=== PATIENT | female | born 1940 | race Caucasian/White ===

== ENCOUNTER 2016-09-27 21:29 | Emergency (ER) | payer MEDICARE, BC ==
[~2016-09-27] VITALS: Ht 162.6 cm; Wt 55.0 kg
[~2016-09-27 21:29] MED LIST: LEVO.075 PO; LOSA25TA31 PO
[2016-09-27 21:30] VITALS: BP 209/84; PULSE 74; RESP 18; TEMP 97.7; O2SAT 100
[2016-09-27 22:14] VITALS: BP 199/77; PULSE 77; RESP 18; O2SAT 99
[2016-09-27] MEDS ORDERED: SODIUM CHLORIDE 0.9% FLUSH 10 ML FLUSH IVF PRN (22:30)
[2016-09-27] MEDS ORDERED: ALUMINUM/MAGNESIUM/SIMETH 30 ML CUP PO ONE (22:30)
[2016-09-27] MEDS ORDERED: LIDOCAINE VISCOUS 2% SOLN 15 ML UDC PO ONE (22:30)
[2016-09-27] MEDS ORDERED: ASPIRIN 81 MG CHEW TAB PO ONE (22:30)
[2016-09-27 22:40] VITALS: BP 165/78; PULSE 64; RESP 16; O2SAT 100
--- NOTE | 2016-09-27 22:48 | RADRPT ---
EXAM DATE/TIME: 09/27/2016 22:24 [facility] COMPARISON: No previous studies available for comparison. INDICATIONS : Chest pain that started today. MEDICAL HISTORY : None. SURGICAL HISTORY : None. ENCOUNTER: Initial ACUITY: 1 day PAIN SCORE: 5/10 LOCATION: Bilateral chest FINDINGS: A single view of the chest demonstrates the lungs to be symmetrically aerated without evidence of mas s, infiltrate or effusion. There is hyperaeration of the lung bauman. The cardiomediastinal contours are unremarkable. Osseous structures are intact. CONCLUSION: No acute disease. Harinder Valentino MD on September 27, 2016 at 22:46 Board Certified Radiologist. This report was verified electronically.
[2016-09-27 23:15] LABS: ANION GAP 8 MEQ/L (5-15); AST (GOT) 20 U/L (15-37); BICARBONATE 27.5 MEQ/L (21.0-32.0); BLOOD UREA NITROGEN 14 MG/DL (7-18); CHLORIDE 98 MEQ/L (98-107); GLOMERULAR FILTRATION RATE 79 ML/MIN (>89); POTASSIUM 3.8 MEQ/L (3.5-5.1); SODIUM (NA) 133 MEQ/L (136-145)
[2016-09-27 23:23] LABS: ALKALINE PHOSPHATASE 96 U/L (45-117); ALT (GPT) 19 U/L (10-53); TOTAL BILIRUBIN ADULT 0.3 MG/DL (0.2-1.0)
[2016-09-27 23:27] LABS: AUTOMATED NEUTROPHIL # 3.8 TH/MM3 (1.8-7.7); BASOPHIL # 0.1 TH/MM3 (0-0.2); BASOPHIL % 1.2 % (0.0-2.0); EOSINOPHIL # 0.1 TH/MM3 (0-0.4); EOSINOPHIL % 1.7 % (0.0-4.0); HEMO FLAGS DIFF FINAL; LYMPH % 30.6 % (9.0-44.0); MEAN CELL VOLUME 88.6 FL (80.0-100.0); MEAN CORPUSCULAR HEMOGLOBIN 29.6 PG (27.0-34.0); MEAN CORPUSCULAR HGB CONC 33.4 % (32.0-36.0); MONO % 8.8 % (0.0-8.0); NEUT % 57.7 % (16.0-70.0); PLATELET COUNT 214 TH/MM3 (150-450); RED BLOOD COUNT 3.95 MIL/MM3 (4.00-5.30); RED CELL DISTRIBUTION WIDTH 13.1 % (11.6-17.2); WHITE BLOOD COUNT 6.6 TH/MM3 (4.0-11.0)
[2016-09-27 23:38] LABS: APTT (PATIENT) 27.7 SEC (24.3-30.1); PROTHROMBIN TIME - PATIENT 11.4 SEC (9.8-11.6)
--- NOTE | 2016-09-28 00:37 | RADRPT ---
EXAM DATE/TIME: 09/27/2016 23:40 [facility] COMPARISON: No previous studies available for comparison. INDICATIONS : Right upper quadrant pain. MEDICAL HISTORY : Hypercholesterolemia. Hypertension. Thyroid disease. Ovarian cysts. Bladder cancer. Heart murmur. R hematic fever. SURGICAL HISTORY : Tonsillectomy. Appendectomy. Left ovarian cyst removal. Left oophorectomy. ENCOUNTER: Initial ACUITY: 1 day PAIN SCORE: 3/10 LOCATION: Right upper quadrant MEASUREMENTS: LIVER: 14.4 cm length COMMON DUCT: 4 mm RIGHT KIDNEY: 9.6 x 4.4 x 3.7 cm FINDINGS: LIVER: Normal echotexture without focal lesion or ductal dilatation. COMMON DUCT: No intraluminal mass or stone visualized. GALLBLADDER: Contains no stones, demonstrates no wall thickening or pericholecystic fluid. The gallbladder is cont racted. PANCREAS: The visualized portions are within normal limits. RIGHT KIDNEY: No evidence of stone, or mass. There is minimal dilatation of the right renal pelvis. CONCLUSION: 1. Contracted gallbladder without stones. 2. Minimal dilatation the right renal pelvis. Wei Duron MD on September 28, 2016 at 0:33 Board Certified Radiologist. This report was verified electronically.
--- NOTE | 2016-09-28 00:53 | PD ---
HPI Chief Complaint: Chest Pain Time Seen by Provider: 22:02 Travel History International Travel<30 days: No Contact w/Intl Traveler<30days: No Traveled to known affect area: No History of Present Illness HPI This 76-year-old woman presents to the emergency department complaining of chest pain. She started developing retrosternal chest pain tonight after dinner. She had a spaghetti for dinner. She's had trouble with indigestion or reflux in the past. She's had chest pain in the past several times but is never been diagnosed of CAD or ACS. She doesn't anxiety. She denies any shortness of breath. Is not having any pain now. Only other symptom that she' s had some increased belching. History Past Medical History Narrative Medical Rheumatic fever as a child Hypothyroidism Possible hypertension in the past, not treated now Anxiety GERD PNEUMOCCOCAL Vaccine (Year): 2 Menopausal: Yes Social History Alcohol Use: Yes (OCC) Tobacco Use: No Allergies-Medications (Allergen,Severity, Reaction): Coded Allergies: Penicillin (Verified Allergy, Severe, Rash, 09/27/16) Sulfa (Verified Allergy, Severe, Hives, 09/27/16) Reported Meds & Prescriptions Reported Meds & Active Scripts Active Reported Cozaar (Losartan Potassium) 25 Mg Tab 25 Mg PO DAILY Synthroid (Levothyroxine Sodium) 75 Mcg Tab 50 Mcg PO DAILY Review of Systems Except as stated in HPI: all other systems reviewed are Neg Physical Exam Narrative GENERAL: Well-appearing 76-year-old woman, no acute distress. SKIN: Focused skin assessment warm/dry. HEAD: Atraumatic. Normocephalic. EYES: Pupils equal and round. No scleral icterus. No injection or drainage. ENT: No nasal bleeding or discharge. Mucous membranes pink and moist. NECK: Trachea midline. No JVD. CARDIOVASCULAR: Regular rate and rhythm. No murmur appreciated. RESPIRATORY: No accessory muscle use. Clear to auscultation. Breath sounds equal bilaterally. GASTROINTESTINAL: Abdomen is flat and soft. She's had some epigastric and right upper quadrant tenderness to palpation. Negative Zuñiga's. MUSCULOSKELETAL: No obvious deformities. No clubbing. No cyanosis. No edema. NEUROLOGICAL: Awake and alert. No obvious cranial nerve deficits. Motor grossly within normal limits. Normal speech. PSYCHIATRIC: Appropriate mood and affect; insight and judgment normal. Data Data Last Documented VS Vital Signs Date Time Temp Pulse Resp B/P Pulse Ox O2 Delivery O2 Flow Rate FiO2 09/27/16 22:40 64 16 165/78 100 Room Air 09/27/16 21:30 97.7 Orders Electrocardiogram (09/27/16 22:23) Complete Blood Count With Diff (09/27/16 22:23) Comprehensive Metabolic Panel (09/27/16 22:23) Magnesium (Mg) (09/27/16 22:23) Prothrombin Time / Inr (Pt) (09/27/16 22:23) Act Partial Throm Time (Ptt) (09/27/16 22:23) Troponin I (09/27/16 22:23) Chest, Single Ap (09/27/16 22:23) Ecg Monitoring (09/27/16 22:23) Bilateral Bp Monitoring (09/27/16 22:23) Iv Access Insert/Monitor (09/27/16 22:23) Oximetry (09/27/16 22:23) Oxygen Administration (09/27/16 22:23) Aspirin Chew (Aspirin Chew) (09/27/16 22:30) Sodium Chloride 0.9% Flush (Ns Flush) (09/27/16 22:30) Us Abdomen Gallbladder (09/27/16 ) Al-Mag Hy-Si 40-40-4 Mg/Ml Liq (Mag-Al P (09/27/16 22:30) Lidocaine 2% Viscous (Xylocaine 2% Visco (09/27/16 22:30) Labs Laboratory Tests Test 09/27/16 22:35 White Blood Count 6.6 TH/MM3 Red Blood Count 3.95 MIL/MM3 Hemoglobin 11.7 GM/DL Hematocrit 35.0 % Mean Corpuscular Volume 88.6 FL Mean Corpuscular Hemoglobin 29.6 PG Mean Corpuscular Hemoglobin 33.4 % Concent Red Cell Distribution Width 13.1 % Platelet Count 214 TH/MM3 Mean Platelet Volume 9.1 FL Neutrophils (%) (Auto) 57.7 % Lymphocytes (%) (Auto) 30.6 % Monocytes (%) (Auto) 8.8 % Eosinophils (%) (Auto) 1.7 % Basophils (%) (Auto) 1.2 % Neutrophils # (Auto) 3.8 TH/MM3 Lymphocytes # (Auto) 2.0 TH/MM3 Monocytes # (Auto) 0.6 TH/MM3 Eosinophils # (Auto) 0.1 TH/MM3 Basophils # (Auto) 0.1 TH/MM3 CBC Comment DIFF FINAL Differential Comment Prothrombin Time 11.4 SEC Prothromb Time International 1.0 RATIO Ratio Activated Partial 27.7 SEC Thromboplast Time Sodium Level 133 MEQ/L Potassium Level 3.8 MEQ/L Chloride Level 98 MEQ/L Carbon Dioxide Level 27.5 MEQ/L Anion Gap 8 MEQ/L Blood Urea Nitrogen 14 MG/DL Creatinine 0.72 MG/DL Estimat Glomerular Filtration 79 ML/MIN Rate Random Glucose 102 MG/DL Calcium Level 8.3 MG/DL Magnesium Level 2.0 MG/DL Total Bilirubin 0.3 MG/DL Aspartate Amino Transf 20 U/L (AST/SGOT) Alanine Aminotransferase 19 U/L (ALT/SGPT) Alkaline Phosphatase 96 U/L Troponin I LESS THAN 0.02 NG/ML Total Protein 6.7 GM/DL Albumin 3.5 GM/DL [facility] Medical Decision Making Medical Screen Exam Complete: Yes Emergency Medical Condition: Yes Interpretation(s) My review of EKG: Normal sinus rhythm at a rate of 62, normal axis, normal intervals, no acute ischemia. LABS: CBC is unremarkable CMP is unremarkable Troponins negative Coags are unremarkable Chest x-ray negative Right upper quadrant ultrasound: Contracted gallbladder without stones. Minimal dilatation of the right renal pelvis. Differential Diagnosis ACS, gastritis, hepatobiliary disease, other Narrative Course Medical decision-making 76 year-old woman presents to the emergency department with chest pain. Sounds like indigestion. She also has anxiety. Initial workups unremarkable. She had some right upper quadrant tenderness. Right upper quadrant ultrasounds negative. Recommend outpatient follow-up. Diagnosis Primary Impression: Indigestion Additional Instructions: Follow-up with your primary doctor in the next 2-4 days. Return to the emergency department for any new or worsening symptoms. Med/Other Pt SpecificInfo: No Change to Meds Disposition: 01 DISCHARGE HOME Condition: Stable Yaw Jacobo MD Sep 28, 2016 00:53
--- NOTE | 2016-09-28 10:28 | EKG ---
Date Performed: 09/27/2016 Time Performed: 22:11:09 PTAGE: 76 years EKG: Sinus rhythm POSSIBLE RIGHT VENTRICULAR CONDUCTION DELAY BORDERLINE ECG Compared to prior tracing no significant change PREVIOUS TRACING : 04/23/2013 18.11 DOCTOR: Maricel Dan Interpretating Date/Time 09/28/2016 10:25:21
== END 2016-09-28 01:13 | disposition home or self-care (01) ==
LOC: NEPC 21:29
DX: K30 Functional dyspepsia (principal); E03.9 Hypothyroidism, unspecified; F41.9 Anxiety disorder, unspecified
CPT/HCPCS: 71010; 76705; 80053; 83735; 84484; 85025; 85610; 85730; 93005

== ENCOUNTER → 2017-06-03 | Outpatient (CLI) | payer MEDICARE, BC ==
[2017-06-03 08:41] LABS: AUTOMATED NEUTROPHIL # 3.4 TH/MM3 (1.8-7.7); BASOPHIL # 0.1 TH/MM3 (0-0.2); BASOPHIL % 1.3 % (0.0-2.0); EOSINOPHIL # 0.1 TH/MM3 (0-0.4); EOSINOPHIL % 1.4 % (0.0-4.0); HEMATOCRIT 38.3 % (35.0-46.0); HEMO FLAGS DIFF FINAL; LYMPH % 29.3 % (9.0-44.0); LYMPHOCYTE # 1.6 TH/MM3 (1.0-4.8); MEAN CELL VOLUME 90.6 FL (80.0-100.0); MEAN CORPUSCULAR HGB CONC 33.2 % (32.0-36.0); MONO % 7.4 % (0.0-8.0); NEUT % 60.6 % (16.0-70.0); PLATELET COUNT 238 TH/MM3 (150-450); RED BLOOD COUNT 4.22 MIL/MM3 (4.00-5.30); RED CELL DISTRIBUTION WIDTH 13.2 % (11.6-17.2); WHITE BLOOD COUNT 5.5 TH/MM3 (4.0-11.0)
[2017-06-03 09:00] LABS: ALT (GPT) 18 U/L (10-53)
[2017-06-03 09:09] LABS: ALKALINE PHOSPHATASE 95 U/L (45-117); FREE T4 1.38 NG/DL (0.76-1.46); HDL CHOLESTEROL 105.5 MG/DL (40.0-60.0); LDL CHOLESTEROL 110 MG/DL (0-99); TOTAL BILIRUBIN ADULT 0.6 MG/DL (0.2-1.0)
[2017-06-03 09:10] LABS: ANION GAP 7 MEQ/L (5-15); AST (GOT) 23 U/L (15-37); BICARBONATE 26.3 MEQ/L (21.0-32.0); BLOOD UREA NITROGEN 13 MG/DL (7-18); CHLORIDE 100 MEQ/L (98-107); GLOMERULAR FILTRATION RATE 66 ML/MIN (>89); GLUCOSE,FASTING 91 MG/DL (74-99); POTASSIUM 4.4 MEQ/L (3.5-5.1); SODIUM (NA) 133 MEQ/L (136-145)
== END ==
LOC: CLAB 08:16
PROVIDERS: ATTEND Family Medicine
DX: E03.9 Hypothyroidism, unspecified (principal); E78.5 Hyperlipidemia, unspecified; I10 Essential (primary) hypertension
CPT/HCPCS: 36415; 80053; 80061; 84439; 84443; 85025